=== PATIENT | male | born 1935 | race Two or more races ===

== ENCOUNTER 2018-05-31 10:29 | Emergency (ER) | payer OTHER ==
[~2018-05-31] VITALS: Ht 175.3 cm; Wt 79.4 kg
--- NOTE | 2018-05-31 10:44 | NUR ---
EVON FROM A BOARD AND CARE DT ALTERED MENTAL STATUS X 2 DAYS.PATIENT NOT IN DISTRESS. PATIENT ON O2 VIA NC @ 3LPM. SKIN IS WARM TO TOUCH AND NON DIAPHORETIC,. FC NOTED. VSS. PENDING MD WATSON
[2018-05-31] MEDS ORDERED: ACETAMINOPHEN 325 MG TABLET ONE (10:49)
[2018-05-31] MEDS ORDERED: ACETAMINOPHEN 650 MG/SUPP.RECT RC ONE ×3 (10:56→11:00)
[2018-05-31 10:59] LABS: BASOPHILS # (AUTO) 0.1 /CMM (0.0-0.2); BASOPHILS % (AUTO) 0.6 % (0.0-2.0); HEMATOCRIT 34 % (39-51); HEMOGLOBIN 11.5 g/dL (13.5-17.5); LYMPHOCYTES # (AUTO) 0.4 /CMM (0.8-4.8); LYMPHOCYTES % (AUTO) 4.6 % (20.0-44.0); MEAN CORPUSCULAR HEMOGLOBIN 29 PG (26.0-33.0); MEAN CORPUSCULAR HGB CONC 34 g/dl (31.0-36.0); MEAN CORPUSCULAR VOLUME 88 fL (80-96); MONOCYTES # (AUTO) 0.2 /CMM (0.1-1.30); NEUTROPHILS # (AUTO) 8.7 /CMM (1.8-8.9); NEUTROPHILS % (AUTO) 92.8 % (43.0-81.0); PLATELET COUNT (AUTO) 270 /CMM (150-450); RDW COEFFICIENT OF VARIATION 13.3 (11.5-15.0); RED BLOOD CELL COUNT(AUTO) 3.92 MIL/uL (4.5-6.0); WHITE BLOOD COUNT (AUTO) 9.4 K/uL (4.3-11.0)
[2018-05-31] MEDS ORDERED: ACETAMINOPHEN 325 MG TABLET PO ONE (11:00)
[2018-05-31] MEDS ORDERED: IV NS 0.9% 1,000 ML BAG IV ONE ×2 (11:00→12:00)
[2018-05-31 11:10] LABS: CALCIUM, SERUM 9.2 mg/dL (8.5-10.1); CARBON DIOXIDE 25 mmol/L (21-32); CHLORIDE 108 mmol/L (98-107); CREATININE 1.8 mg/dL (0.6-1.3); GLUCOSE 336 mg/dL (74-106); POTASSIUM 4.6 mmol/L (3.5-5.1); SODIUM SERUM 140 mmol/L (136-145); UREA NITROGEN, BLOOD 55 mg/dL (7-18)
[2018-05-31 11:15] LABS: ALANINE AMINOTRANSFERASE 40 U/L (12-78); ALBUMIN 2.6 g/dL (3.4-5.0); ALKALINE PHOSPHATASE 102 U/L (46-116); ASPARTATE AMINOTRANSFERASE 35 U/L (15-37); BILIRUBIN,DIRECT 0.2 mg/dL (0.0-0.2); BILIRUBIN,TOTAL 0.8 mg/dL (0.2-1.0); TOTAL PROTEIN, SERUM 6.9 g/dL (6.4-8.2)
[2018-05-31 11:17] LABS: TROPONIN I < 0.017 ng/mL (0.00-0.056)
[2018-05-31 11:25] LABS: INR 1.15 (0.85-1.15)
[2018-05-31 12:26] LABS: APPEARANCE,URINE Clear (CLEAR); BILIRUBIN,URINE Negative (NEGATIVE); BLOOD, URINE Trace-intact Ery/uL (NEGATIVE); COLOR,URINE Yellow (YELLOW); KETONES,URINE Negative (NEGATIVE); LEUKOCYTE ESTERASE ,URINE Small (NEGATIVE); NITRITE, URINE Negative (NEGATIVE); PROTEIN,URINE >=300 mg/dl (NEGATIVE); UGLUCOSE Negative (NEGATIVE); UROBILINOGEN,URINE 0.2 EU/dL (0.2)
[2018-05-31 12:27] LABS: PH,URINE >9.0 (5.0-8.0)
[2018-05-31 12:37] LABS: BACTERIA,URINE 3+ /HPF (None Seen); SQUAMOUS EPITHELIAL CELL,UR Few /HPF (None Seen)
[2018-05-31] MEDS: CEFTRIAXONE 1GM BAG (ER ONLY) 1 GM/50 ML PIGGYBACK IV ONE ×2 (12:41→12:51)
[2018-05-31] MEDS ORDERED: AZITHROMYCIN 500 MG in IV D5W 250 ML IV ONE (13:00)
[2018-05-31] MEDS ORDERED: CEFTRIAXONE 1 G in IV D5W 50 ML IV ONE (13:00)
--- NOTE | 2018-05-31 13:07 | NUR ---
PUT IN FIRST CALL WITH SOPHIE CHONG
--- NOTE | 2018-05-31 13:26 | NUR ---
CALLED [facility] FOR PEKIN
[2018-05-31 16:10] VITALS: BP 146/84
--- NOTE | 2018-05-31 16:20 | NUR ---
PATIENT GOING TO [facility] ROOM # [id number] DR MADDY TORRES MD RN TO RN REPORT
--- NOTE | 2018-05-31 16:30 | NUR ---
TRANSPORTATION HAS BEEN DELAYED TO 1705
--- NOTE | 2018-06-02 23:07 | NUR ---
[facility] CALLED AND REPORT GIVEN TO CHARGE NURSE SINGH OF GRAM + COCCI CLUSTER FROM ONE OF THE ANAEROBIC BOTTLES. DR. DAVIS ALSO INFORMED. CALLED PT AND DAUGHTER AND LEFT MESSAGE. NO CALL BACK YET.
== END 2018-05-31 18:18 | disposition short-term general hospital (02) ==
LOC: ER 10:30
DX: N39.0 Urinary tract infection, site not specified (principal); A41.9 Sepsis, unspecified organism; I10 Essential (primary) hypertension; E11.9 Type 2 diabetes mellitus without complications; F03.90 Unspecified dementia, unspecified severity, without behavioral disturbance, psychotic disturbance, mood disturbance, and anxiety
CPT/HCPCS: 36415; 71045; 80048; 80076; 81001; 83605 ×2; 84484; 85025; 85730; 87040 ×2; 87077; 87081; 87086; 87186 ×2; 93005; 96361; 96365; 96368; 99291; A4606; J0456; J0696; J7030 ×2; J7060 ×2; 81000-TC; Z7610

== ENCOUNTER 2018-12-07 18:20 | Emergency (ER) | payer OTHER ==
[~2018-12-07] VITALS: Ht 162.6 cm; Wt 58.5 kg
[2018-12-07] MEDS: IV NS 0.9% 1,000 ML BAG IV ONE (18:47)
[2018-12-07 19:01] LABS: BASOPHILS % (AUTO) 0.3 % (0.0-2.0); HEMATOCRIT 35 % (39-51); HEMOGLOBIN 11.6 g/dL (13.5-17.5); LYMPHOCYTES # (AUTO) 0.8 /CMM (0.8-4.8); LYMPHOCYTES % (AUTO) 8.3 % (20.0-44.0); MEAN CORPUSCULAR HGB CONC 33 g/dl (31.0-36.0); MEAN CORPUSCULAR VOLUME 87 fL (80-96); MONOCYTES # (AUTO) 0.5 /CMM (0.1-1.30); MONOCYTES % (AUTO) 4.5 % (2.0-12.0); NEUTROPHILS # (AUTO) 8.8 /CMM (1.8-8.9); NEUTROPHILS % (AUTO) 86.9 % (43.0-81.0); PLATELET COUNT (AUTO) 307 /CMM (150-450); RED BLOOD CELL COUNT(AUTO) 4.05 MIL/uL (4.5-6.0); WHITE BLOOD COUNT (AUTO) 10.1 K/uL (4.3-11.0)
[2018-12-07 19:14] LABS: CALCIUM, SERUM 9.2 mg/dL (8.5-10.1); CARBON DIOXIDE 27 mmol/L (21-32); CHLORIDE 104 mmol/L (98-107); CREATININE 1.4 mg/dL (0.6-1.3); GLUCOSE 173 mg/dL (74-106); POTASSIUM 4.6 mmol/L (3.5-5.1); SODIUM SERUM 137 mmol/L (136-145); UREA NITROGEN, BLOOD 40 mg/dL (7-18)
[2018-12-07 19:15] LABS: APPEARANCE,URINE Turbid (CLEAR); BILIRUBIN,URINE SMALL (NEGATIVE); BLOOD, URINE Large Ery/uL (NEGATIVE); COLOR,URINE Orange (YELLOW); KETONES,URINE 15 (NEGATIVE); LEUKOCYTE ESTERASE ,URINE Large (NEGATIVE); NITRITE, URINE Negative (NEGATIVE); PROTEIN,URINE >=300 mg/dl (NEGATIVE); UGLUCOSE Negative (NEGATIVE); UROBILINOGEN,URINE 0.2 EU/dL (0.2)
--- NOTE | 2018-12-07 19:16 | NUR ---
patient presented to the ER altered, GT intact, mix in placed, connected to the monitor and pulse ox. kept comfortable. will continue to monitor accordingly.
--- NOTE | 2018-12-07 19:17 | NUR ---
endorsed to kali HALL for janette.
[2018-12-07 19:20] LABS: ALANINE AMINOTRANSFERASE 24 U/L (12-78); ALBUMIN 2.6 g/dL (3.4-5.0); ALKALINE PHOSPHATASE 110 U/L (46-116); ASPARTATE AMINOTRANSFERASE 20 U/L (15-37); BILIRUBIN,DIRECT 0.4 mg/dL (0.0-0.2); TOTAL PROTEIN, SERUM 7.2 g/dL (6.4-8.2)
[2018-12-07 19:30] LABS: BACTERIA,URINE Moderate /HPF (None Seen); RBC,URINE TOO NUMEROUS TO COUN /HPF (0-2); SQUAMOUS EPITHELIAL CELL,UR Few /HPF (None Seen); WBC,URINE TOO NUMEROUS TO COUN /HPF (0-3)
--- NOTE | 2018-12-07 19:53 | NUR ---
CAR KIDD REQUESTED TO BE NOTIFIED WHEN PT GETS TRANSFERRED CELL: [phone]
--- NOTE | 2018-12-07 19:54 | NUR ---
CALLED SOPHIE CHONG
[2018-12-07] MEDS ORDERED: CEFTRIAXONE 1GM BAG (ER ONLY) 50 ML IV ONE (19:57)
[2018-12-07] MEDS: CEFTRIAXONE 1GM BAG (ER ONLY) 50 ML IV ONE (20:00)
--- NOTE | 2018-12-07 21:33 | NUR ---
PT RESTING IN BED COMFORTABLY, NAD NOTED. WILL CONTINUE TO MONITOR.
--- NOTE | 2018-12-07 22:28 | NUR ---
SPOKE WITH DARNELL FROM [facility]; PATIENT IS ACCEPTED AT [facility]. ACCEPTING MD IS DR. TRAMMELL. NUMBER FOR NURSE TO NURSE REPORT IS [id number] [facility] - ETA [id number]
[2018-12-07] MEDS ORDERED: ACETAMINOPHEN 650 MG/SUPP.RECT RC ONE (22:38)
[2018-12-07] MEDS: ACETAMINOPHEN 650 MG/SUPP.RECT RC ONE (22:42)
--- NOTE | 2018-12-07 22:51 | NUR ---
PT BEING MONITORED. NAD NOTED.
--- NOTE | 2018-12-07 23:31 | NUR ---
REPORT GIVEN TO RAFAEL RUIZ AT [facility] FOR [facility].
[2018-12-07 23:33] VITALS: BP 111/61
== END 2018-12-08 00:03 | disposition short-term general hospital (02) ==
LOC: ER 18:23
DX: G93.40 Encephalopathy, unspecified (principal); N39.0 Urinary tract infection, site not specified; R41.82 Altered mental status, unspecified; F03.90 Unspecified dementia, unspecified severity, without behavioral disturbance, psychotic disturbance, mood disturbance, and anxiety; I10 Essential (primary) hypertension; E11.9 Type 2 diabetes mellitus without complications; I44.4 Left anterior fascicular block
CPT/HCPCS: 36415; 71045; 80048; 80076; 81001; 82962; 83605; 84484; 85025; 85730; 87040 ×2; 87077; 87086; 87186; 93005; 96361; 96365; 99285; J0696; 81000-TC